=== PATIENT | male | born 1960 | race Caucasian/White ===

== ENCOUNTER 2020-01-18 13:00 | Inpatient (IN) | payer MEDICAID ==
[~2020-01-18] VITALS: Ht 160 cm; Wt 90.0 kg
[2020-01-18] MEDS ORDERED: NIFE-79 PO (13:07)
[2020-01-18] MEDS ORDERED: HYDR-1475 PO (13:07)
[2020-01-18] MEDS ORDERED: LOSA25TA21 PO (13:07)
[2020-01-18] MEDS ORDERED: PANT-31 PO (13:07)
[2020-01-18] MEDS ORDERED: METF-960 PO (13:07)
[2020-01-18] MEDS ORDERED: METO25XL PO (13:07)
[2020-01-18] MEDS ORDERED: FINA-27 PO (13:07)
[2020-01-18] MEDS ORDERED: ATOR10TA84 PO (13:07)
[2020-01-18] MEDS ORDERED: ACAR50TA2 PO (13:07)
[2020-01-18] MEDS ORDERED: ASPI-728 PO (13:07)
[2020-01-18 14:32] LABS: BASOPHILS % (AUTO) 0.9 % (0.0-2.0); EOSINOPHILS % (AUTO) 5.6 % (1.0-6.0); HEMATOCRIT 41.2 % (41-53); HEMOGLOBIN 13.9 g/dL (13.5-17.5); LYMPHOCYTES # (AUTO) 1.1 K/uL (1.0-4.8); LYMPHOCYTES % (AUTO) 17.2 % (22.0-44.0); MEAN CORPUSCULAR HEMOGLOBIN 30.4 pg (26.0-34.0); MEAN CORPUSCULAR HGB CONC 33.7 G/dL (31.0-37.0); MEAN CORPUSCULAR VOLUME 90 fL (80-100); MONOCYTES # (AUTO) 0.6 K/uL (0.1-1.0); MONOCYTES % (AUTO) 8.8 % (2.0-9.0); NEUTROPHILS # (AUTO) 4.5 K/uL (1.8-7.7); NEUTROPHILS % (AUTO) 67.5 % (40.0-70.0); PLATELET COUNT (AUTO) 213 K/uL (150-450); RED BLOOD CELL COUNT(AUTO) 4.57 MIL/uL (4.50-5.90); RED CELL DISTRIBUTION WIDTH 13.8 % (11.5-14.5)
[2020-01-18 14:46] LABS: ANION GAP 10 mmol/L (8-16); CALCIUM, TOTAL 9.1 mg/dL (8.8-10.5); CARBON DIOXIDE 27 mmol/L (22-29); CHLORIDE 101 mmol/L (98-107); CREATININE 1.12 mg/dL (0.60-1.30); GLOMERULAR FILTR. RATE CALC > 60 mL/min (>60); GLUCOSE,RANDOM 184 mg/dL (70-110); POTASSIUM 3.8 mmol/L (3.5-5.1); SODIUM SERUM 138 mmol/L (136-145); UREA NITROGEN, BLOOD 17 mg/dL (7-18)
[2020-01-18 14:53] LABS: ALANINE AMINOTRANSFERASE 35 U/L (12-78); ALBUMIN 3.6 g/dL (3.4-5.0); ALKALINE PHOSPHATASE 65 U/L (46-116); ASPARTATE AMINOTRANSFERASE 20 U/L (15-37); BILIRUBIN,TOTAL 0.4 mg/dL (0.1-1.0)
[2020-01-18 14:55] LABS: B-TYPE NATRIURETIC PEPTIDE 82 pg/mL (0-100)
[2020-01-18] MEDS ORDERED: ASPIRIN 81 MG CHEWABLE TABLET PO ONE (16:15)
[2020-01-18] MEDS ORDERED: IPRATROPIUM BROMIDE 0.5 MG/2.5 ML NEB SOLUTION NEB PRN (16:15)
[2020-01-18] MEDS ORDERED: MORPHINE SULFATE 2 MG/ML SYRINGE IVP PRN (16:15)
[2020-01-18] MEDS ORDERED: ZOLPIDEM TARTRATE 10 MG TABLET PO PRN (16:15)
[2020-01-18] MEDS ORDERED: ONDANSETRON HCL 4 MG/2 ML VIAL IVP PRN ×2 (16:15→16:30)
[2020-01-18] MEDS ORDERED: MAGNESIUM HYDROXIDE SUSPENSION 30 ML UDCUP PO PRN (16:15)
[2020-01-18] MEDS ORDERED: ACETAMINOPHEN 325 MG TABLET PO PRN (16:30)
[2020-01-18] MEDS ORDERED: 0.9% SODIUM CHLORIDE 10 ML SYRINGE IVP PRN (16:30)
[2020-01-18 16:50] LABS: GLUCOSE,POINT OF CARE 130 MG/DL (70-110)
[2020-01-18] MEDS: NITROGLYCERIN 2% (1 GM=INCH) PACKET TP SCH ×2 (17:11→23:29)
[2020-01-18 17:38] VITALS: BP 129/75
[2020-01-18 20:00] VITALS: BP 115/66
[2020-01-18] MEDS: HYDROCODONE/ACETAMINOPHEN 5-325 MG TABLET PO PRN (20:30)
[2020-01-18] MEDS: ATORVASTATIN CALCIUM 20 MG TABLET PO SCH (20:30)
[2020-01-18] MEDS: DOCUSATE SODIUM 100 MG CAPSULE PO SCH (20:30)
[2020-01-19] VITALS (7 sets, daily range): BP systolic 102–143; BP diastolic 54–77
[2020-01-19] MEDS: NITROGLYCERIN 2% (1 GM=INCH) PACKET TP SCH ×4 (05:39→23:53)
[2020-01-19 07:20] LABS: CHOL/HDL RATIO 4.6 (4.2-7.3)
[2020-01-19] MEDS: PANTOPRAZOLE SODIUM 40 MG DR TABLET PO SCH (08:42)
[2020-01-19] MEDS: DOCUSATE SODIUM 100 MG CAPSULE PO SCH ×2 (08:42→20:10)
[2020-01-19] MEDS: FINASTERIDE 5 MG TABLET PO SCH (08:42)
[2020-01-19] MEDS: HYDROCODONE/ACETAMINOPHEN 5-325 MG TABLET PO PRN ×2 (08:43→17:31)
[2020-01-19] MEDS: LOSARTAN POTASSIUM 25 MG TABLET PO SCH (08:43)
[2020-01-19] MEDS: NIFEdipine 30 MG ER TABLET PO SCH (08:53)
[2020-01-19] MEDS ORDERED: HYDROCHLOROTHIAZIDE 25 MG TABLET PO SCH (09:00)
[2020-01-19] MEDS ORDERED: METOPROLOL SUCCINATE 25 MG ER TABLET PO SCH (09:00)
[2020-01-19] MEDS: ASPIRIN 81 MG CHEWABLE TABLET PO SCH (10:39)
[2020-01-19] MEDS: TICAGRELOR 90 MG TABLET PO SCH ×2 (10:39→20:10)
[2020-01-19] MEDS ORDERED: DEXTROSE 50%-WATER 25 GM/50 ML SYRINGE IVP PRN (14:00)
[2020-01-19] MEDS ORDERED: ACET-66 PO (14:30)
[2020-01-19] MEDS ORDERED: GLYB5TAB8 PO (14:38)
[2020-01-19] MEDS ORDERED: MULT-248 PO (14:38)
[2020-01-19] MEDS: ACETAMINOPHEN 325 MG TABLET PO PRN ×2 (15:31→23:50)
[2020-01-19] MEDS: ATORVASTATIN CALCIUM 20 MG TABLET PO SCH (20:10)
[2020-01-19] MEDS: METOPROLOL SUCCINATE 25 MG ER TABLET PO SCH (21:00)
[2020-01-19 21:03] LABS: GLUCOMETER DEV NAME(LOC) 5N.3; GLUCOSE,POINT OF CARE 161 MG/DL (70-110)
[2020-01-19 21:58] LABS: GLUCOMETER DEV NAME(LOC) 5S.1; GLUCOSE,POINT OF CARE 113 MG/DL (70-110)
[2020-01-20 05:09] VITALS: BP 137/72
[2020-01-20 05:54] LABS: GLUCOMETER DEV NAME(LOC) 5N.3; GLUCOSE,POINT OF CARE 109 MG/DL (70-110)
[2020-01-20] MEDS: NITROGLYCERIN 2% (1 GM=INCH) PACKET TP SCH ×4 (06:16→23:45)
[2020-01-20 07:03] VITALS: BP 125/76
[2020-01-20 07:08] LABS: BASOPHILS % (AUTO) 0.5 % (0.0-2.0); EOSINOPHILS % (AUTO) 5.2 % (1.0-6.0); HEMATOCRIT 38.6 % (41-53); HEMOGLOBIN 13.3 g/dL (13.5-17.5); LYMPHOCYTES # (AUTO) 1.1 K/uL (1.0-4.8); LYMPHOCYTES % (AUTO) 14.3 % (22.0-44.0); MEAN CORPUSCULAR HEMOGLOBIN 30.9 pg (26.0-34.0); MEAN CORPUSCULAR HGB CONC 34.5 G/dL (31.0-37.0); MEAN CORPUSCULAR VOLUME 90 fL (80-100); MONOCYTES # (AUTO) 0.8 K/uL (0.1-1.0); MONOCYTES % (AUTO) 10.8 % (2.0-9.0); NEUTROPHILS # (AUTO) 5.2 K/uL (1.8-7.7); NEUTROPHILS % (AUTO) 69.2 % (40.0-70.0); PLATELET COUNT (AUTO) 184 K/uL (150-450); RED BLOOD CELL COUNT(AUTO) 4.31 MIL/uL (4.50-5.90); RED CELL DISTRIBUTION WIDTH 13.5 % (11.5-14.5)
[2020-01-20 08:11] LABS: ALANINE AMINOTRANSFERASE 27 U/L (12-78); ALBUMIN 3.3 g/dL (3.4-5.0); ALKALINE PHOSPHATASE 46 U/L (46-116); ANION GAP 6 mmol/L (8-16); ASPARTATE AMINOTRANSFERASE 18 U/L (15-37); BILIRUBIN,TOTAL 0.7 mg/dL (0.1-1.0); CALCIUM, TOTAL 8.7 mg/dL (8.8-10.5); CARBON DIOXIDE 28 mmol/L (22-29); CHLORIDE 105 mmol/L (98-107); CREATININE 0.91 mg/dL (0.60-1.30); GLOMERULAR FILTR. RATE CALC > 60 mL/min (>60); GLUCOSE,RANDOM 132 mg/dL (70-110); POTASSIUM 3.8 mmol/L (3.5-5.1); SODIUM SERUM 139 mmol/L (136-145); TOTAL PROTEIN, SERUM 6.6 g/dL (6.4-8.2); UREA NITROGEN, BLOOD 17 mg/dL (7-18)
[2020-01-20] MEDS: ASPIRIN 81 MG CHEWABLE TABLET PO SCH (08:53)
[2020-01-20] MEDS: DOCUSATE SODIUM 100 MG CAPSULE PO SCH ×2 (08:54→20:07)
[2020-01-20] MEDS: LOSARTAN POTASSIUM 25 MG TABLET PO SCH (08:54)
[2020-01-20] MEDS: NIFEdipine 30 MG ER TABLET PO SCH (08:55)
[2020-01-20] MEDS: TICAGRELOR 90 MG TABLET PO SCH ×2 (08:55→20:07)
[2020-01-20] MEDS: FINASTERIDE 5 MG TABLET PO SCH (08:55)
[2020-01-20] MEDS: PANTOPRAZOLE SODIUM 40 MG DR TABLET PO SCH (08:56)
[2020-01-20] MEDS: HYDROCODONE/ACETAMINOPHEN 5-325 MG TABLET PO PRN ×2 (08:56→20:07)
[2020-01-20] MEDS: METOPROLOL SUCCINATE 25 MG ER TABLET PO SCH ×3 (08:56→20:07)
[2020-01-20 11:34] VITALS: BP 140/78
[2020-01-20 15:29] VITALS: BP 142/68
[2020-01-20] MEDS: ATORVASTATIN CALCIUM 20 MG TABLET PO SCH (20:07)
[2020-01-20] MEDS: INSULIN LISPRO 100 UNITS/ML SQ PRN (20:11)
[2020-01-20 20:48] VITALS: BP 130/81
[2020-01-20 20:55] LABS: GLUCOMETER DEV NAME(LOC) 5N.3; GLUCOSE,POINT OF CARE 112 MG/DL (70-110)
[2020-01-20 20:55] LABS: GLUCOMETER DEV NAME(LOC) 5N.3; GLUCOSE,POINT OF CARE 177 MG/DL (70-110)
[2020-01-20 23:12] VITALS: BP 129/72
[2020-01-21] VITALS (15 sets, daily range): BP systolic 119–177; BP diastolic 71–92
[2020-01-21] MEDS: NITROGLYCERIN 2% (1 GM=INCH) PACKET TP SCH ×4 (05:28→23:54)
[2020-01-21] MEDS ORDERED: SODIUM BICARBONATE 50 MEQ/50 ML VIAL ONE (08:47)
[2020-01-21] MEDS ORDERED: LIDOCAINE/PF 1% 30 ML VIAL ONE (08:47)
[2020-01-21] MEDS ORDERED: IOHEXOL 300 MG/ML 150 ML VIAL ONE (08:47)
[2020-01-21] MEDS ORDERED: HEPARIN SODIUM 1000 UNITS/NS 1,000 ML ONE (08:47)
[2020-01-21] MEDS ORDERED: MIDAZOLAM HCL 2 MG/2 ML VIAL ONE (08:47)
[2020-01-21] MEDS ORDERED: FentaNYL CITRATE-PF 100 MCG/2 ML VIAL ONE (08:47)
[2020-01-21] MEDS ORDERED: HEPARIN SODIUM,PORCINE 1,000 UNITS/ML 10 ML VIAL ONE (08:56)
[2020-01-21] MEDS ORDERED: NITROGLYCERIN 50 MG/D5% WATER 0 ML ONE (08:57)
[2020-01-21] MEDS ORDERED: IOHEXOL 300 MG/ML 100 ML VIAL ONE ×2 (09:25→09:43)
[2020-01-21] MEDS ORDERED: SODIUM CHLORIDE 0.9% 500 ML IV ONE (09:30)
[2020-01-21] MEDS ORDERED: HEPARIN SODIUM 1000 UNITS/NS 1,000 ML IARTER ONE (09:30)
[2020-01-21] MEDS ORDERED: IOHEXOL 300 MG/ML 150 ML VIAL IARTER ONE (09:30)
[2020-01-21] MEDS ORDERED: LIDOCAINE 1% 30 ML/SOD BICARB 8.4% 4 ML SQ ONE (09:30)
[2020-01-21] MEDS ORDERED: ASPIRIN 325 MG TABLET ONE (09:43)
[2020-01-21] MEDS ORDERED: IOHEXOL 300 MG/ML 50 ML VIAL ONE (09:43)
[2020-01-21] MEDS ORDERED: TICAGRELOR 90 MG TABLET ONE (09:44)
[2020-01-21] MEDS ORDERED: ASPIRIN 325 MG TABLET PO ONE (10:00)
[2020-01-21] MEDS ORDERED: HEPARIN SODIUM,PORCINE 5,000 UNITS/ML VIAL IVP ONE ×2 (10:00)
[2020-01-21] MEDS ORDERED: TICAGRELOR 90 MG TABLET PO ONE (10:00)
[2020-01-21] MEDS: NIFEdipine 30 MG ER TABLET PO SCH (11:42)
[2020-01-21] MEDS: TICAGRELOR 90 MG TABLET PO SCH ×2 (11:42→20:14)
[2020-01-21] MEDS: ASPIRIN 81 MG CHEWABLE TABLET PO SCH (11:42)
[2020-01-21] MEDS: PANTOPRAZOLE SODIUM 40 MG DR TABLET PO SCH (11:42)
[2020-01-21] MEDS: DOCUSATE SODIUM 100 MG CAPSULE PO SCH ×2 (11:42→20:13)
[2020-01-21] MEDS: FINASTERIDE 5 MG TABLET PO SCH (11:42)
[2020-01-21 11:53] LABS: GLUCOMETER DEV NAME(LOC) 5S.1; GLUCOSE,POINT OF CARE 216 MG/DL (70-110)
[2020-01-21 11:53] LABS: GLUCOMETER DEV NAME(LOC) 5S.1; GLUCOSE,POINT OF CARE 153 MG/DL (70-110)
[2020-01-21] MEDS: INSULIN LISPRO 100 UNITS/ML SQ PRN ×2 (12:23→17:42)
[2020-01-21 19:08] LABS: GLUCOMETER DEV NAME(LOC) 5S.1; GLUCOSE,POINT OF CARE 182 MG/DL (70-110)
[2020-01-21 19:08] LABS: GLUCOMETER DEV NAME(LOC) 5N.3; GLUCOSE,POINT OF CARE 148 MG/DL (70-110)
[2020-01-21] MEDS: ACETAMINOPHEN 325 MG TABLET PO PRN (20:13)
[2020-01-21] MEDS: ATORVASTATIN CALCIUM 20 MG TABLET PO SCH (20:13)
[2020-01-21] MEDS: METOPROLOL SUCCINATE 50 MG ER TABLET PO SCH (20:14)
[2020-01-21] MEDS: HYDROCODONE/ACETAMINOPHEN 5-325 MG TABLET PO PRN (23:56)
[2020-01-22 00:26] VITALS: BP 116/84
[2020-01-22 04:24] VITALS: BP 128/78
[2020-01-22 04:41] LABS: GLUCOMETER DEV NAME(LOC) 5S.1; GLUCOSE,POINT OF CARE 128 MG/DL (70-110)
[2020-01-22] MEDS: NITROGLYCERIN 2% (1 GM=INCH) PACKET TP SCH ×2 (06:11→12:00)
[2020-01-22] MEDS ORDERED: ASPI-728 PO (06:24)
[2020-01-22] MEDS ORDERED: TICA90TA PO (06:24)
[2020-01-22 06:55] LABS: BASOPHILS % (AUTO) 0.4 % (0.0-2.0); EOSINOPHILS % (AUTO) 6.9 % (1.0-6.0); HEMOGLOBIN 13.2 g/dL (13.5-17.5); LYMPHOCYTES # (AUTO) 1.1 K/uL (1.0-4.8); LYMPHOCYTES % (AUTO) 13.1 % (22.0-44.0); MEAN CORPUSCULAR HEMOGLOBIN 30.6 pg (26.0-34.0); MEAN CORPUSCULAR HGB CONC 33.8 G/dL (31.0-37.0); MEAN CORPUSCULAR VOLUME 91 fL (80-100); MONOCYTES # (AUTO) 0.7 K/uL (0.1-1.0); MONOCYTES % (AUTO) 7.9 % (2.0-9.0); NEUTROPHILS % (AUTO) 71.7 % (40.0-70.0); PLATELET COUNT (AUTO) 206 K/uL (150-450); RED BLOOD CELL COUNT(AUTO) 4.31 MIL/uL (4.50-5.90); RED CELL DISTRIBUTION WIDTH 13.8 % (11.5-14.5)
[2020-01-22 07:12] VITALS: BP 128/71
[2020-01-22 07:14] LABS: ANION GAP 6 mmol/L (8-16); CALCIUM, TOTAL 8.8 mg/dL (8.8-10.5); CARBON DIOXIDE 28 mmol/L (22-29); CHLORIDE 104 mmol/L (98-107); CREATININE 1.01 mg/dL (0.60-1.30); GLOMERULAR FILTR. RATE CALC > 60 mL/min (>60); GLUCOSE,RANDOM 148 mg/dL (70-110); POTASSIUM 4.2 mmol/L (3.5-5.1); SODIUM SERUM 138 mmol/L (136-145); UREA NITROGEN, BLOOD 15 mg/dL (7-18)
[2020-01-22 07:44] LABS: GLUCOMETER DEV NAME(LOC) 5S.1; GLUCOSE,POINT OF CARE 138 MG/DL (70-110)
[2020-01-22] MEDS: TICAGRELOR 90 MG TABLET PO SCH (08:41)
[2020-01-22] MEDS: FINASTERIDE 5 MG TABLET PO SCH (08:41)
[2020-01-22] MEDS: DOCUSATE SODIUM 100 MG CAPSULE PO SCH (08:41)
[2020-01-22] MEDS: PANTOPRAZOLE SODIUM 40 MG DR TABLET PO SCH (08:41)
[2020-01-22] MEDS: ASPIRIN 81 MG CHEWABLE TABLET PO SCH (08:41)
[2020-01-22] MEDS: NIFEdipine 30 MG ER TABLET PO SCH (08:41)
[2020-01-22] MEDS: METOPROLOL SUCCINATE 50 MG ER TABLET PO SCH (08:42)
[2020-01-22] MEDS ORDERED: LOSARTAN POTASSIUM 50 MG TABLET PO SCH (09:00)
[2020-01-22 10:59] VITALS: BP 124/82
[2020-01-22] MEDS: INSULIN LISPRO 100 UNITS/ML SQ PRN (12:04)
[2020-01-22 21:57] LABS: GLUCOMETER DEV NAME(LOC) 5N.3; GLUCOSE,POINT OF CARE 174 MG/DL (70-110)
== END 2020-01-22 13:25 | disposition home or self-care (01) | DRG 175 ==
LOC: EMS 13:04 → 5S 16:29
PROVIDERS: ADMIT Hospitalist; ATTEND Hospitalist
PROC: 027034Z Dilation of Coronary Artery, One Artery with Drug-eluting Intraluminal Device, Percutaneous Approach (ICD-10-PCS; principal; 2020-01-21)
PROC: 4A023N7 Measurement of Cardiac Sampling and Pressure, Left Heart, Percutaneous Approach (ICD-10-PCS; 2020-01-21)
PROC: B2111ZZ Fluoroscopy of Multiple Coronary Arteries using Low Osmolar Contrast (ICD-10-PCS; 2020-01-21)
PROC: B2151ZZ Fluoroscopy of Left Heart using Low Osmolar Contrast (ICD-10-PCS; 2020-01-21)
DX: I25.110 Atherosclerotic heart disease of native coronary artery with unstable angina pectoris (principal); I10 Essential (primary) hypertension; E78.5 Hyperlipidemia, unspecified; E11.9 Type 2 diabetes mellitus without complications; I25.2 Old myocardial infarction; E78.00 Pure hypercholesterolemia, unspecified; Z88.8 Allergy status to other drugs, medicaments and biological substances; Z95.1 Presence of aortocoronary bypass graft; E66.3 Overweight; Z68.35 Body mass index [BMI] 35.0-35.9, adult; Z98.61 Coronary angioplasty status; I25.82 Chronic total occlusion of coronary artery
CPT/HCPCS: 71250; 83036; 83735; 92920; 92928; 93005; 93306; 93459; J1644; J2250; J3010; J3490; Q9967; 36415-L1; 36415-TC; 71045-TC; 80061-TC

== ENCOUNTER 2021-07-15 19:28 | Emergency (ER) | payer MEDICAID ==
[~2021-07-15] VITALS: Ht 165.1 cm; Wt 81.8 kg
[~2021-07-15 19:28] MED LIST: ACAR50TA2 PO; ASPI-1450 PO; ATOR10TA84 PO; FINA-27 PO; GLYB5TAB8 PO; LOSA-382 PO; METF-1211 PO; METO50 PO; MICO14CR6 TP; MULT-248 PO; NIFE-79 PO; PANT-31 PO; TICA90TA PO
[2021-07-15] MEDS ORDERED: ACYC-138 PO ×2 (20:42→20:58)
[2021-07-15 20:59] VITALS: BP 131/85
== END 2021-07-15 21:01 | disposition home or self-care (01) ==
LOC: EMS 19:33
DX: G51.0 Bell's palsy (principal); I25.10 Atherosclerotic heart disease of native coronary artery without angina pectoris; E11.9 Type 2 diabetes mellitus without complications; E78.00 Pure hypercholesterolemia, unspecified; I10 Essential (primary) hypertension; Z86.79 Personal history of other diseases of the circulatory system; Z98.890 Other specified postprocedural states; Z88.8 Allergy status to other drugs, medicaments and biological substances
CPT/HCPCS: 70450; 82962; 99284

== ENCOUNTER 2022-07-30 16:25 | Emergency (ER) | payer MEDICAID ==
[~2022-07-30] VITALS: Ht 162.6 cm; Wt 81.8 kg
[~2022-07-30 16:25] MED LIST changes: +ACYC-138 PO; +ATOR10TA PO; -ATOR10TA84 PO
[2022-07-30] MEDS ORDERED: LOSA-382 PO (16:44)
[2022-07-30] MEDS ORDERED: DAPA10TA PO (16:44)
[2022-07-30] MEDS ORDERED: METO50TA18 PO (16:44)
[2022-07-30] MEDS ORDERED: NIFE10CA50 PO (16:44)
[2022-07-30] MEDS ORDERED: ATOR40TA28 PO (16:44)
[2022-07-30 18:12] LABS: BASOPHILS % (AUTO) 0.7 % (0.0-2.0); EOSINOPHILS % (AUTO) 5.6 % (1.0-6.0); HEMATOCRIT 44.6 % (41-53); HEMOGLOBIN 14.5 g/dL (13.5-17.5); LYMPHOCYTES # (AUTO) 1.3 K/uL (1.0-4.8); LYMPHOCYTES % (AUTO) 17.5 % (22.0-44.0); MEAN CORPUSCULAR HGB CONC 32.6 G/dL (31.0-37.0); MEAN CORPUSCULAR VOLUME 92 fL (80-100); MONOCYTES # (AUTO) 0.7 K/uL (0.1-1.0); MONOCYTES % (AUTO) 9.2 % (2.0-9.0); NEUTROPHILS # (AUTO) 5.1 K/uL (1.8-7.7); PLATELET COUNT (AUTO) 199 K/uL (150-450); RED BLOOD CELL COUNT(AUTO) 4.84 MIL/uL (4.50-5.90); RED CELL DISTRIBUTION WIDTH 14.8 % (11.5-14.5)
[2022-07-30] MEDS ORDERED: FAMOTIDINE 40 MG in SODIUM CHLORIDE 0.9% 100 ML IV ONE (18:15)
[2022-07-30 18:20] LABS: ANION GAP 10 mmol/L (8-16); CALCIUM, TOTAL 9.1 mg/dL (8.8-10.5); CARBON DIOXIDE 28 mmol/L (22-29); CHLORIDE 105 mmol/L (98-107); CREATININE 0.92 mg/dL (0.60-1.30); GLOMERULAR FILTR. RATE CALC > 60 mL/min (>60); GLUCOSE,RANDOM 113 mg/dL (70-110); POTASSIUM 4.4 mmol/L (3.5-5.1); SODIUM SERUM 143 mmol/L (136-145)
[2022-07-30 18:25] LABS: INR 1.1 (0.9-1.1); PROTHROMBIN TIME 11.1 SEC (9.4-11.6)
[2022-07-30 18:26] LABS: ALANINE AMINOTRANSFERASE 26 U/L (12-78); ALBUMIN 3.4 g/dL (3.4-5.0); ALKALINE PHOSPHATASE 75 U/L (46-116); ASPARTATE AMINOTRANSFERASE 16 U/L (15-37); BILIRUBIN,TOTAL 0.3 mg/dL (0.1-1.0)
[2022-07-30] MEDS ORDERED: ASPI-1444 PO (18:29)
[2022-07-30] MEDS ORDERED: NIFE30TA98 PO (18:29)
[2022-07-30] MEDS ORDERED: PROP10DR4 OU (18:29)
[2022-07-30] MEDS ORDERED: TAMS-13 PO (18:29)
[2022-07-30] MEDS ORDERED: METO100T14 PO (18:29)
[2022-07-30] MEDS ORDERED: METF-445 PO (18:29)
[2022-07-30 18:43] LABS: B-TYPE NATRIURETIC PEPTIDE 125 pg/mL (0-100)
[2022-07-30 21:15] VITALS: BP 133/74
== END 2022-07-30 21:31 | disposition home or self-care (01) ==
LOC: EMS 16:27
DX: R10.13 Epigastric pain (principal); R11.2 Nausea with vomiting, unspecified; R19.7 Diarrhea, unspecified; E11.9 Type 2 diabetes mellitus without complications; I10 Essential (primary) hypertension; I25.10 Atherosclerotic heart disease of native coronary artery without angina pectoris; E78.00 Pure hypercholesterolemia, unspecified; I25.2 Old myocardial infarction; Z88.6 Allergy status to analgesic agent; Z79.82 Long term (current) use of aspirin; Z79.84 Long term (current) use of oral hypoglycemic drugs
CPT/HCPCS: 99285; 96374; 76705; 71045; 80053; 83880; 84484; 85025; 85610; 85730; 74018; 93005; J3490; J7050

== ENCOUNTER 2022-11-09 14:43 | Emergency (ER) | payer MEDICAID ==
[~2022-11-09] VITALS: Ht 162.6 cm; Wt 81.8 kg
[~2022-11-09 14:43] MED LIST changes: -ACAR50TA2 PO; -ACYC-138 PO; +ASPI-1444 PO; -ASPI-1450 PO; -ATOR10TA PO; +ATOR40TA28 PO; +DAPA10TA PO; -GLYB5TAB8 PO; -METF-1211 PO; +METF-445 PO; +METO100T14 PO; -METO50 PO; +NIFE-78 PO; -NIFE-79 PO; +PROP10DR4 OU; +TAMS0.4C34 PO; -TICA90TA PO
[2022-11-09 14:45] VITALS: TEMP 98.5
[2022-11-09 15:06] LABS: GLUCOMETER DEV NAME(LOC) ERT.5; GLUCOSE,POINT OF CARE 311 MG/DL (70-110)
[2022-11-09 18:07] VITALS: BP 110/58; PULSE 60; RESP 18
== END 2022-11-09 18:08 | disposition home or self-care (01) ==
LOC: EMS 15:03
DX: S60.222A Contusion of left hand, initial encounter (principal); E11.65 Type 2 diabetes mellitus with hyperglycemia; I25.10 Atherosclerotic heart disease of native coronary artery without angina pectoris; I10 Essential (primary) hypertension; E78.00 Pure hypercholesterolemia, unspecified; Z98.890 Other specified postprocedural states; Z88.2 Allergy status to sulfonamides; Z88.8 Allergy status to other drugs, medicaments and biological substances; X58.XXXA Exposure to other specified factors, initial encounter; Y93.89 Activity, other specified; Y92.89 Other specified places as the place of occurrence of the external cause; Y99.8 Other external cause status
CPT/HCPCS: 82962; 99284